=== PATIENT | male | born 1995 | race Caucasian/White ===

== ENCOUNTER 2018-04-06 10:09 | Emergency (ER) | payer MEDICAID ==
[~2018-04-06] VITALS: Ht 180.3 cm; Wt 196.9 kg
[2018-04-06 10:16] VITALS: BP 158/96
== END 2018-04-06 13:45 | disposition home or self-care (01) ==
LOC: ER 10:09
DX: J42 Unspecified chronic bronchitis (principal)
CPT/HCPCS: 71046

== ENCOUNTER 2022-08-14 12:09 | Emergency (ER) | payer MEDICAID ==
[~2022-08-14] VITALS: Ht 182.9 cm; Wt 215.2 kg
[2022-08-14 14:56] VITALS: BP 148/98
[2022-08-14] MEDS ORDERED: HYDR-4902 PO (15:14)
[2022-08-14] MEDS ORDERED: IBUP800T26 PO (15:14)
[2022-08-14] MEDS ORDERED: KETOROLAC TROMETH 60MG/2ML VIAL IM ONE (15:15)
[2022-08-14] MEDS ORDERED: HYDROcodone-ACET 5/325MG TAB PO ONE (15:15)
== END 2022-08-14 15:24 | disposition home or self-care (01) ==
LOC: ER 12:09
DX: S93.402A Sprain of unspecified ligament of left ankle, initial encounter (principal); X50.1XXA Overexertion from prolonged static or awkward postures, initial encounter; Y93.89 Activity, other specified; Y92.89 Other specified places as the place of occurrence of the external cause; Y99.8 Other external cause status
CPT/HCPCS: 73630; 96372; 99283; J1885